=== PATIENT | male | born 1955 | race Caucasian/White ===

== ENCOUNTER 2016-11-06 17:35 | Inpatient (IN) | payer OTHER, MEDICAID ==
[2016-11-06] MEDS ORDERED: NS 500 ML IV ONE (17:41)
--- NOTE | 2016-11-06 17:42 | EDPHY ---
H & P HPI/ROS: HPI CHIEF COMPLAINT: Lightheadedness, nausea, diaphoresis HISTORY OF PRESENT ILLNESS: This patient very pleasant 61-year-old male, he presents emergency room by EMS if develops sudden onset of lightheadedness, nausea, diaphoresis and a feeling as if he was going to pass out. Denies having headache, chest pain, or focal weakness. He does endorse tingling all over his body when this happened. He did also endorse shortness of breath. Tells me the symptoms lasted 15-20 minutes. The since have resolved. He called 911 as he thought he was having a heart attack. Past Medical History: COPD, diastolic heart failure, AFib, diabetes, hypertension, hyperlipidemia, obstructive sleep apnea Past Surgical History: left-sided chest pacemaker Social History: Endorses marijuana, denies alcohol or other illicit drugs Family History: Noncontributory ROS REVIEW OF SYSTEMS: A comprehensive 10 point review of systems is otherwise negative aside from elements mentioned in the history of present illness. Exam Constitutional triage nursing summary reviewed, vital signs reviewed, awake/ alert. Eyes normal conjunctivae and sclera, EOMI, PERRLA. HENT normal inspection, atraumatic, moist mucus membranes, no epistaxis, neck supple/ no meningismus, no raccoon eyes. Respiratory clear to auscultation bilaterally, normal breath sounds, no respiratory distress, no wheezing. Cardiovascular rate normal, regular rhythm, no murmur, no edema, distal pulses normal. Gastrointestinal soft, non-tender, no rebound, no guarding, normal bowel sounds, no distension, no pulsatile mass. Genitourinary no CVA tenderness. Musculoskeletal no midline vertebral tenderness, full range of motion, no calf swelling, no tenderness of extremities, no meningismus, good pulses, neurovascularly intact. Skin pink, warm, & dry, no rash, skin atraumatic. Neurologic awake, alert and oriented x 3, AAOx3, moves all 4 extremities equally, motor intact, sensory intact, CN II-XII intact, normal cerebellar, normal vision, normal speech. Psychiatric normal mood/affect. Heme/Lymph/Immune no lymphadenopathy. Differential diagnosis includes but is not limited to: ACS, atypical chest pain , pneumothorax, pneumonia, pulmonary embolism, aortic dissection, congestive heart failure, tumor, musculoskeletal pain, esophageal pain, GERD, peptic ulcer disease, pancreatitis Medical Decision Making: This patient had an IV established obtain blood work, he will have an EKG and chest x-ray. Evaluated for presyncope versus syncope, and cardiac evaluation. Will need to interpret his [employer] pacemaker. Re-evaluation: EKG interpretation by me on record in [employer] system. Impression time of EKG 1740, this is AFib rate of 101, there is incomplete left bundle branch block present. I do not appreciate acute ischemic change. 1849: this patient's pacemaker was interrogated by [employer] it does show SVT episodes very frequently with heart rates in atrium running 450 stool for 60s and ventricular rate running 160s to 170s. This is very frequent. Also underlying AFib. Med otherwise the pacemaker is appropriate working appropriately. 1899: spoke with Dr. Hassan the hospitalist service who agrees to admit this patient. Reason for admission is SVT. Source: Patient, EMS - Medical/Surgical History Hx Asthma: No Hx Chronic Respiratory Disease: Yes Hx Diabetes: Yes Hx Cardiac Disease: Yes Hx Renal Disease: No Hx Cirrhosis: No Hx Alcoholism: No Hx HIV/AIDS: No Hx Splenectomy or Spleen Trauma: No Other PMH: CHF/HTN/type 2 diabetes, pacemaker, peripheral neuropathy, DOROTHY, afib on coumadin, compressed discs, prostate cancer, COPD, sleep apnea, tonsillectomy , radical prostatectomy - Social History Smoking Status: Never smoked Constitutional: Initial Vital Signs Temperature (C) 36.8 C 11/06/16 17:35 Heart Rate 103 H 11/06/16 17:35 Respiratory Rate 18 11/06/16 17:35 Blood Pressure 163/110 H 11/06/16 17:35 O2 Sat (%) 93 11/06/16 17:35 O2 Delivery Mode Nasal Cannula O2 (L/minute) 2 Allergies/Adverse Reactions: No Known Allergies Allergy (Verified 08/14/16 16:22) Home Medications: Medication Instructions Recorded Aspirin EC [Aspirin EC 81 mg (*)] 81 mg PO DAILY #30 tab 03/06/15 Potassium Cl [Klor-Con 20 meq (*)] 20 meq PO DAILY #30 tab 03/06/15 Furosemide [Lasix 40 MG (*)] 40 mg PO DAILY PRN 08/14/16 Metoprolol Succinate Xr [Toprol Xl 100 mg PO DAILY 08/14/16 100 mg (*)] metFORMIN HCL [Glucophage 500 mg 500 mg PO BIDMEAL PRN 08/14/16 (*)] Tiotropium Inhaler [Spiriva 18 mcg IH DAILY #1 mdi 08/15/16 Handihaler] Diltiazem HCl [Diltiazem ER] 240 mg PO DAILY 11/06/16 Warfarin Sodium [Coumadin 2.5MG 2.5 mg PO MOTUWEFR 11/06/16 (*)] Warfarin Sodium [Coumadin 5MG (*)] 5 mg PO SUTHSA 11/06/16 traMADol [Ultram 50 mg (*)] 50 - 100 mg PO BID PRN 11/06/16 Medical Decision Making - Data Points Laboratory Results: Laboratory Results 11/06/16 17:30 11/06/16 17:30 11/06/16 17:30 WBC 12.49 H 10^3/uL (3.80-9.50) RBC 6.13 10^6/uL (4.40-6.38) Hgb 18.6 H g/dL (13.7-17.5) Hct 53.3 H % (40.0-51.0) MCV 86.9 fL (81.5-99.8) MCH 30.3 pg (27.9-34.1) MCHC 34.9 g/dL (32.4-36.7) RDW 12.7 % (11.5-15.2) Plt Count 233 10^3/uL (150-400) MPV 10.8 fL (8.7-11.7) Neut % (Auto) 59.5 % (39.3-74.2) Lymph % (Auto) 32.2 % (15.0-45.0) Nolan % (Auto) 6.6 % (4.5-13.0) Eos % (Auto) 0.8 % (0.6-7.6) Baso % (Auto) 0.6 % (0.3-1.7) Nucleat RBC Rel Count 0.0 % (0.0-0.2) Absolute Neuts (auto) 7.42 H 10^3/uL (1.70-6.50) Absolute Lymphs (auto) 4.02 H 10^3/uL (1.00-3.00) Absolute Monos (auto) 0.83 H 10^3/uL (0.30-0.80) Absolute Eos (auto) 0.10 10^3/uL (0.03-0.40) Absolute Basos (auto) 0.08 10^3/uL (0.02-0.10) Absolute Nucleated RBC 0.00 10^3/uL (0-0.01) Immature Gran % 0.3 % (0.0-1.1) Immature Gran # 0.04 10^3/uL (0.00-0.10) PT 18.9 H SEC (12.0-15.0) INR 1.58 H (0.83-1.16) APTT 27.2 SEC (23.0-38.0) Sodium 143 mEq/L (134-144) Potassium 3.5 mEq/L (3.5-5.2) Chloride 102 mEq/L (97-110) Carbon Dioxide 26 mEq/l (22-31) Anion Gap 15 mEq/L (8-16) BUN 26 H mg/dL (7-23) Creatinine 1.3 mg/dL (0.7-1.3) Estimated GFR 56 Glucose 112 H mg/dL (70-100) Calcium 9.8 mg/dL (8.5-10.4) Magnesium 2.1 mg/dL (1.6-2.3) Total Bilirubin 1.2 mg/dL (0.1-1.4) Conjugated Bilirubin 0.6 H mg/dL (0.0-0.5) Unconjugated Bilirubin 0.6 mg/dL (0.0-1.1) AST 25 IU/L (17-59) ALT 42 IU/L (21-72) Alkaline Phosphatase 126 IU/L (38-126) Creatine Kinase 76 IU/L (0-224) CK-MB (CK-2) Fraction 1.33 ng/mL (0-3.19) Troponin I Pending NT-Pro-B Natriuret Pep Pending Total Protein 8.9 H g/dL (6.3-8.2) Albumin 4.9 g/dL (3.5-5.0) Lipase 96.0 IU/L (23-300) Medications Given: Discontinued Medications Sodium Chloride (Ns) 500 mls @ 0 mls/hr IV ONCE ONE PRN Reason: As Directed Stop: 11/06/16 17:42 Last Admin: 11/06/16 17:46 Dose: 500 mls Departure - Departure Disposition: [facility] Inpatient Acute Clinical Impression: Supraventricular tachycardia Condition: Fair
--- NOTE | 2016-11-06 17:45 | CPEKG ---
Heart Rate: 101 RR Interval: 594 QRSD Interval: 110 QT Interval: 400 QTC Interval: 519 QRS Montague: -56 T Wave Montague: 65 EKG Severity - ABNORMAL ECG - EKG Impression: ATRIAL FIBRILLATION, V-RATE 66-134 EKG Impression: INCOMPLETE LEFT BUNDLE BRANCH BLOCK EKG Impression: PROBABLE LEFT VENTRICULAR HYPERTROPHY Electronically Signed By: Lawrence Renee 06-Nov-2016 23:30:08
[2016-11-06 17:51] LABS: % IMMATURE GRANULYOCYTES 0.3 % (0.0-1.1); ABSOLUTE IMMATURE GRANULOCYTES 0.04 10^3/uL (0.00-0.10); ADD DIFF? NO; ADD MORPH? NO; ADD SCAN? NO; ATYPICAL LYMPHOCYTE FLAG 0 (0-99); FRAGMENT RBC FLAG 0 (0-99); HEMATOCRIT 53.3 % (40.0-51.0); HEMOGLOBIN 18.6 g/dL (13.7-17.5); LEFT SHIFT FLG 0 (0-99); LIPEMIA HEMOLYSIS FLAG 90 (0-99); MEAN CELL HEMOGLOBIN 30.3 pg (27.9-34.1); MEAN CELL HEMOGLOBIN CONCENTR. 34.9 g/dL (32.4-36.7); MEAN CELL VOLUME 86.9 fL (81.5-99.8); MEAN PLATELET VOLUME 10.8 fL (8.7-11.7); PLATELET CLUMPS FLAG 20 (0-99); PLATELET COUNT 233 10^3/uL (150-400); RED BLOOD CELL COUNT 6.13 10^6/uL (4.40-6.38); RED CELL DISTRIBUTION WIDTH 12.7 % (11.5-15.2)
[2016-11-06 17:59] LABS: INR 1.58 (0.83-1.16); PROTIME(PATIENT) 18.9 SEC (12.0-15.0)
[2016-11-06 18:00] LABS: APTT 27.2 SEC (23.0-38.0)
--- NOTE | 2016-11-06 18:11 | DX ---
Portable Chest, Single View 17:55 Hours Indication: Chest pain Comparison: 2 view chest dated August 14, 2016 Findings: The lungs are well aerated and clear. No pneumothorax, edema, or airspace consolidation. He art size is normal. No effusion. The left anterior chest wall dual-lead pacemaker with leads in the r ight atrium and right ventricle is unchanged in configuration. Impression: Clear lungs. No acute process.
[2016-11-06 18:13] LABS: ALANINE AMINOTRANSFERASE 42 IU/L (21-72); ALBUMIN 4.9 g/dL (3.5-5.0); ALKALINE PHOSPHATASE 126 IU/L (38-126); ANION GAP 15 mEq/L (8-16); ASPARTATE AMINOTRANSFERASE 25 IU/L (17-59); BILIRUBIN,TOTAL 1.2 mg/dL (0.1-1.4); BILIRUBIN-CONJUGATED 0.6 mg/dL (0.0-0.5); BILIRUBIN-UNCONJUGATED 0.6 mg/dL (0.0-1.1); CALCIUM 9.8 mg/dL (8.5-10.4); CARBON DIOXIDE 26 mEq/l (22-31); CHLORIDE 102 mEq/L (97-110); CREATININE 1.3 mg/dL (0.7-1.3); GLOMERULAR FILTRATION RATE 56; GLUCOSE 112 mg/dL (70-100); MAGNESIUM 2.1 mg/dL (1.6-2.3); POTASSIUM 3.5 mEq/L (3.5-5.2); SODIUM 143 mEq/L (134-144); TOTAL PROTEIN 8.9 g/dL (6.3-8.2)
[2016-11-06 18:43] LABS: CREATINE KINASE-MB FRACTION 1.33 ng/mL (0-3.19)
[2016-11-06 19:08] LABS: TROPONIN I < 0.012 ng/mL (0-0.034)
[2016-11-06] MEDS ORDERED: FUROSEMIDE 40 MG TAB PO PRN (19:23)
[2016-11-06] MEDS ORDERED: ONDANSETRON DISINTEGRATING 4 MG TAB PO PRN (19:25)
[2016-11-06] MEDS ORDERED: ONDANSETRON 4 MG/2 ML VIAL IVP PRN (19:25)
[2016-11-06] MEDS ORDERED: ACETAMINOPHEN 325 MG TAB PO PRN (19:25)
--- NOTE | 2016-11-06 20:19 | GHP ---
[f rep st] HISTORY AND PHYSICAL DATE OF ADMISSION: 11/06/2016 DATE OF EVALUATION: 11/06/2016 CHIEF COMPLAINT: Presyncope. HISTORY OF PRESENT ILLNESS: This is a 61-year-old man with multiple cardiac problems who presents with an acute feeling from earlier today of shortness of breath, dizziness, lightheadedness, tachycardia. He had no chest pain during this episode. He has a history of diastolic CHF, for which he has been hospitalized in [place] , atrial fibrillation, for which he is on chronic anticoagulation, pacemaker in place. In the emergency department, his pacemaker was interrogated, which showed multiple runs of tachycardia with rates up to a ventricular rate of around 150. He tells me that there had been talk of an ablation in the past, I assume, an AV puneet ablation. PAST MEDICAL/SURGICAL HISTORY: 1. AFib, status post pacemaker, on chronic anticoagulation. 2. Diastolic CHF with echocardiogram here showing normal EF, mild aortic insufficiency. 3. COPD. 4. Diabetes mellitus type 2. 5. Hypertension. 6. Hyperlipidemia. 7. DOROTHY. 8. History of prostate cancer, status post prostatectomy. MEDICATIONS: Please see medication reconciliation. ALLERGIES: No known drug allergies. FAMILY HISTORY: Stroke in his mother and father. SOCIAL HISTORY: He had previously been homeless, but he currently lives in an apartment. He has a history of alcoholism, though he has not drank alcohol recently. No drugs. REVIEW OF SYSTEMS: Ten-point review of systems is conducted and is negative except per HPI. PHYSICAL EXAMINATION: VITAL SIGNS: Blood pressure 142/107. Heart rate is 81, respiration rate 16, satting 96% on 2 L. Temperature is 36.8. GENERAL: The patient is a pleasant man who appears comfortable. No acute distress. HEENT: Exam shows him to be normocephalic, atraumatic. CARDIOVASCULAR: Exam shows him to be irregularly irregular. There are no murmurs, rubs, or gallops. There is no elevated JVD. No lower extremity edema. PULMONARY: Lungs clear to auscultation bilaterally. ABDOMEN: Soft, nontender, nondistended. SKIN: No rash. : No Ross. NEUROLOGIC: Exam shows him to be alert and oriented x3. He is moving all extremities. PSYCHIATRIC: Normal mood and affect. LABS: CBC shows a white count of 12, hemoglobin of 18.6. INR is 1.58. BNP is 1450. DATA: 1. I discussed with Dr. Renee. We will admit to PCU. 2. Chest x-ray, which I personally viewed and interpreted, shows pacemaker with AV leads in place. There is nothing acute. 3. EKG, which I personally viewed and interpreted, shows atrial fibrillation. There are no ST-segment changes. This is similar to previous EKGs. IMPRESSION AND PLAN: This is a 61-year-old male with multiple cardiac issues who presents with presyncope. 1. Presyncope: Suspect that this is due to arrhythmias. Pacer interrogation in the ED showed multiple runs of supraventricular tachycardia. He apparently had discussion of an AV node ablation in the past. He will be monitored on telemetry. Troponins will be trended. Cardiology will be consulted. 2. Atrial fibrillation with subtherapeutic INR: We will continue his warfarin. Recheck INR in the morning. We will continue his rate control medications. 3. History of diastolic dysfunction: He appears well compensated. His BNP is elevated, though it is actually lower than his previous. We will continue his Lasix as needed. 4. Erythrocythemia: This is somewhat new for him. He also has leukocytosis with even differential. We will recheck a CBC in the morning. May need hematology followup. 5. Mildly elevated creatinine: We will follow this closely and recheck in the morning. 6. Code status: Full code. 7. Chronic obstructive pulmonary disease: We will continue his inhalers. Erythrocythemia may be chronic hypoxia. 8. Diabetes mellitus type 2: We will hold his metformin. /[id number]/MODL MTDD
[2016-11-06] MEDS: WARFARIN SODIUM 2.5 MG TAB PO SCH (22:03)
[2016-11-07 06:35] LABS: % IMMATURE GRANULYOCYTES 0.3 % (0.0-1.1); ABSOLUTE IMMATURE GRANULOCYTES 0.02 10^3/uL (0.00-0.10); ADD DIFF? NO; ADD MORPH? NO; ADD SCAN? NO; ATYPICAL LYMPHOCYTE FLAG 20 (0-99); FRAGMENT RBC FLAG 0 (0-99); HEMATOCRIT 46.2 % (40.0-51.0); HEMOGLOBIN 16.5 g/dL (13.7-17.5); LEFT SHIFT FLG 0 (0-99); LIPEMIA HEMOLYSIS FLAG 90 (0-99); MEAN CELL HEMOGLOBIN 31.2 pg (27.9-34.1); MEAN CELL HEMOGLOBIN CONCENTR. 35.7 g/dL (32.4-36.7); MEAN CELL VOLUME 87.3 fL (81.5-99.8); MEAN PLATELET VOLUME 10.6 fL (8.7-11.7); PLATELET CLUMPS FLAG 10 (0-99); PLATELET COUNT 155 10^3/uL (150-400); RED BLOOD CELL COUNT 5.29 10^6/uL (4.40-6.38); RED CELL DISTRIBUTION WIDTH 12.4 % (11.5-15.2)
[2016-11-07 06:38] LABS: INR 1.84 (0.83-1.16); PROTIME(PATIENT) 21.3 SEC (12.0-15.0)
[2016-11-07 06:55] LABS: ANION GAP 8 mEq/L (8-16); CALCIUM 8.4 mg/dL (8.5-10.4); CARBON DIOXIDE 25 mEq/l (22-31); CHLORIDE 107 mEq/L (97-110); CREATININE 0.9 mg/dL (0.7-1.3); GLOMERULAR FILTRATION RATE > 60; GLUCOSE 98 mg/dL (70-100); POTASSIUM 3.3 mEq/L (3.5-5.2); SODIUM 140 mEq/L (134-144)
[2016-11-07 07:03] LABS: TROPONIN I < 0.012 ng/mL (0-0.034)
[2016-11-07] MEDS: traMADol 50 MG TAB PO PRN (07:23)
[2016-11-07] MEDS: METOPROLOL SUCCINATE XR 100 MG TAB PO SCH (07:23)
[2016-11-07] MEDS: DILTIAZEM XR 240 MG CAP PO SCH (07:24)
[2016-11-07] MEDS: ASPIRIN EC 81 MG TAB PO SCH (08:42)
[2016-11-07] MEDS: POTASSIUM CL 20 MEQ TAB PO SCH (08:42)
[2016-11-07] MEDS: TIOTROPIUM INHALER 18 MCG/DOSE 5 DOSE/MDI IH SCH (09:29)
--- NOTE | 2016-11-07 15:16 | HOSPPROG ---
Hospitalist Progress Note Assessment/Plan: # acute presyncope- patient with lightheadedness and palpitations on presentation- based on pacemaker interrogation thought potentially related to SVT EKG (personally reviewed and interpreted) Atrial fibrillation - cardiology consulting for recs regarding possible EP consultation - status post IV fluids in the emergency department - continue tele monitoring # atrial fibrillation- currently rate controlled on home meds in the 70s - continue anticoagulation- INR 1.8 - continue home metoprolol # hypertension- adequate control on home meds # diabetes- blood glucose 90-110- monitor on a.m. labs # chronic diastolic heart failure- clinically compensated- oxygen saturations 95% on room air # prophylaxis- full-dose anticoagulation # diet- cardiac # disposition greater than 2 midnights as patient requires cardiac monitoring medication titration and likely EP consultation I discussed the case with Cardiology they will evaluate patient's pacemaker interrogation and make recommendations Subjective: he has no symptoms overnight Objective: Vital Signs Temp Pulse Resp BP Pulse Ox 36.6 C 73 18 150/111 H 93 11/07/16 11:22 11/07/16 11:22 11/07/16 11:22 11/07/16 11:22 11/07/16 11:22 Laboratory Results 11/07/16 05:10 11/07/16 05:10 11/06/16 11/07/16 11/08/16 05:59 05:59 05:59 Intake Total 1000 Output Total 375 Balance 625 PT 21.3 SEC (12.0-15.0) H 11/07/16 05:10 INR 1.84 (0.83-1.16) H 11/07/16 05:10 - Physical Exam Constitutional: appears nourished Eyes: anicteric sclera Ears, Nose, Mouth, Throat: moist mucous membranes Cardiovascular: regular rate and rhythym Respiratory: no respiratory distress, no rales or rhonchi Gastrointestinal: normoactive bowel sounds, soft, non-tender abdomen Genitourinary: no bladder fullness Skin: warm, normal color Musculoskeletal: No asymmetric calves Neurologic: AAOx3 Psychiatric: interacting appropriately, not anxious Lymph, Heme, Immunologic: no cervical LAD ICD10 Worksheet Patient Problems: Problems Problem Status Diagnosed SVT (supraventricular tachycardia) Acute A-fib Acute Shortness of breath Acute
[2016-11-07] MEDS ORDERED: PROTOCOL POTASSIUM 1 DOSE MISC PRN (15:25)
--- NOTE | 2016-11-07 15:29 | PDCARCONS ---
Cardiology Consult Reason for Consult: Pre syncopal Chief Complaint: Pre syncopal Requesting Physician: Hospitalist History of Present Illness: Patient is a 61 y/o male with history of DM (on therapy) with diabetic neuropathy, HTN, HLP, SSS s/p PPM with underlying atrial fibrillation (on coumadin with [id number] score of 4), COPD, and DOROTHY (CPAP use), who presents to [facility] via EMS with complaints of dyspnea, diaphoresis, and generalized malaise. Symptoms progressed with nausea and emesis. Overall, patient felt like he was going to "pass out". EMS arrived and reportedly caught some pSVT with rates of 150 bpm. Underlying atrial fibrillation for "years" with history of unsuccessful cardioversions. Patient with stress testing (MPI) in the Fall of 2015 with possible "small apical infarction noted", but normal left ventricular systolic ejection fraction. CT scan of chest (given history of COPD ) with evidence of CAD to the LAD and Diag vessels. Uncertain on the patient HgbA1C levels, but he does have a rather significant case of neuropathy. No evidence of nephropathy given normal creatinine today. At present, the patient reports that he is feeling about "baseline" without active complaints of chest pains or pressure. No PND or orthopnea has been noted. Compliance with medical therapy has been good. Blood pressure while exam going on today was moderately elevated to 150/100 mm Hg. Patient does feel that there has been progressive dyspnea and inability to perform day to day activities without more pronounced shortness of breath. Remainder of the ten point review of systems was unremarkable. History Information - Allergies/Home Medication List Allergies/Adverse Reactions: No Known Allergies Allergy (Verified 08/14/16 16:22) Home Medications: Furosemide [Lasix 40 MG (*)] 40 mg PO DAILY PRN 08/14/16 [Last Taken Unknown] Metoprolol Succinate Xr [Toprol Xl 100 mg (*)] 100 mg PO DAILY 08/14/16 [Last Taken 11/06/16] metFORMIN HCL [Glucophage 500 mg (*)] 500 mg PO BIDMEAL PRN 08/14/16 [Last Taken Unknown] Diltiazem HCl [Diltiazem ER] 240 mg PO DAILY 11/06/16 [Last Taken 11/06/16] Warfarin Sodium [Coumadin 2.5MG (*)] 2.5 mg PO MOTUWEFR 11/06/16 [Last Taken ] Warfarin Sodium [Coumadin 5MG (*)] 5 mg PO SUTHSA 11/06/16 [Last Taken 11/05/16] traMADol [Ultram 50 mg (*)] 50 - 100 mg PO BID PRN 11/06/16 [Last Taken 100mg] I have personally reviewed and updated: family history, medical history, social history, surgical history - Past Medical History atrial fibrillation (on anticoagulation with PPM for SSS ), coronary artery disease, cancer (prostate s/p prostatectomy), CHF (diastolic), COPD, diabetes type 2, hypertension, hyperlipidemia - Surgical History Reports: pacemaker/AICD - Family History Positive for: stroke - Social History Smoking Status: Never smoked Alcohol Use: None Drug Use: None Cardiac History - Cardiac History Past Cardiac History: CAD, PACEMAKER Cardiac Risk Factors: hypertension (>140/90), lipidemia, diabetes mellitus, male Timing/Duration: Hours Severity: moderate Severity Scale: 5 Location: substernal Activities at Onset: emotional stress Modifying Factors: improves with: breathing, lying down, rest Associated Symptoms: diaphoresis, nausea/vomiting, shortness of breath, syncope , weakness ANN Risk Evaluation age greater or equal to 65: no greater or equal to 3 CAD risk factors: yes known CAD(stenosis greater or eqaul to 50%): yes ASA use in past 7 days: yes severe angina(greater or equal to 2 episodes in 24hrs): no EKG ST changes greater or equal to 0.5mm: no positive cardiac marker: no Total Score: 3 ANN Score: 13.2% risk Age in Years: < 65 Sex: Male Congestive Heart Failure History: Yes Hypertension History: Yes Stroke/TIA/Thromboembolism History: No Vascular Disease History: No Diabetes Mellitus: Yes [id number] Score: 3Q Physical Exam Temp Pulse Resp BP Pulse Ox 36.6 C 73 18 150/111 H 93 11/07/16 11:22 11/07/16 11:22 11/07/16 11:22 11/07/16 11:22 11/07/16 11:22 O2 (L/minute) 2 Constitutional: no apparent distress, appears nourished, not in pain Eyes: PERRL Ears, Nose, Mouth, Throat: moist mucous membranes, hearing normal Cardiovascular: irregularly irregular, No systolic murmur, No JVD, No edema Peripheral Pulses: 2+: dorsalis-pedis (R), dorsalis-pedis (L) Respiratory: no respiratory distress, no rales or rhonchi, clear to auscultation , No dullness to percussion Gastrointestinal: normoactive bowel sounds Skin: warm, No rash Musculoskeletal: full muscle strength, no muscle tenderness Neurologic: AAOx3, sensation intact bilaterally, CN II-XII Intact Psychiatric: interacting appropriately, not anxious, not encephalopathic Lab and Imaging 11/07/16 05:10 11/07/16 05:10 WBC 7.83 10^3/uL (3.80-9.50) 11/07/16 05:10 RBC 5.29 10^6/uL (4.40-6.38) 11/07/16 05:10 Hgb 16.5 g/dL (13.7-17.5) 11/07/16 05:10 Hct 46.2 % (40.0-51.0) 11/07/16 05:10 MCV 87.3 fL (81.5-99.8) 11/07/16 05:10 MCH 31.2 pg (27.9-34.1) 11/07/16 05:10 MCHC 35.7 g/dL (32.4-36.7) 11/07/16 05:10 RDW 12.4 % (11.5-15.2) 11/07/16 05:10 Plt Count 155 10^3/uL (150-400) D 11/07/16 05:10 MPV 10.6 fL (8.7-11.7) 11/07/16 05:10 Neut % (Auto) 58.4 % (39.3-74.2) 11/07/16 05:10 Lymph % (Auto) 31.4 % (15.0-45.0) 11/07/16 05:10 [place] % (Auto) 8.0 % (4.5-13.0) 11/07/16 05:10 Eos % (Auto) 1.4 % (0.6-7.6) 11/07/16 05:10 Baso % (Auto) 0.5 % (0.3-1.7) 11/07/16 05:10 Nucleat RBC Rel Count 0.0 % (0.0-0.2) 11/07/16 05:10 Absolute Neuts (auto) 4.57 10^3/uL (1.70-6.50) 11/07/16 05:10 Absolute Lymphs (auto) 2.46 10^3/uL (1.00-3.00) 11/07/16 05:10 Absolute Monos (auto) 0.63 10^3/uL (0.30-0.80) 11/07/16 05:10 Absolute Eos (auto) 0.11 10^3/uL (0.03-0.40) 11/07/16 05:10 Absolute Basos (auto) 0.04 10^3/uL (0.02-0.10) 11/07/16 05:10 Absolute Nucleated RBC 0.00 10^3/uL (0-0.01) 11/07/16 05:10 Immature Gran % 0.3 % (0.0-1.1) 11/07/16 05:10 Immature Gran # 0.02 10^3/uL (0.00-0.10) 11/07/16 05:10 PT 21.3 SEC (12.0-15.0) H 11/07/16 05:10 INR 1.84 (0.83-1.16) H 11/07/16 05:10 APTT 27.2 SEC (23.0-38.0) 11/06/16 17:30 Sodium 140 mEq/L (134-144) 11/07/16 05:10 Potassium 3.3 mEq/L (3.5-5.2) L 11/07/16 05:10 Chloride 107 mEq/L (97-110) 11/07/16 05:10 Carbon Dioxide 25 mEq/l (22-31) 11/07/16 05:10 Anion Gap 8 mEq/L (8-16) 11/07/16 05:10 BUN 17 mg/dL (7-23) 11/07/16 05:10 Creatinine 0.9 mg/dL (0.7-1.3) 11/07/16 05:10 Estimated GFR > 60 11/07/16 05:10 Glucose 98 mg/dL (70-100) 11/07/16 05:10 Calcium 8.4 mg/dL (8.5-10.4) L 11/07/16 05:10 Magnesium 2.1 mg/dL (1.6-2.3) 11/06/16 17:30 Total Bilirubin 1.2 mg/dL (0.1-1.4) 11/06/16 17:30 Conjugated Bilirubin 0.6 mg/dL (0.0-0.5) H 11/06/16 17:30 Unconjugated Bilirubin 0.6 mg/dL (0.0-1.1) 11/06/16 17:30 AST 25 IU/L (17-59) 11/06/16 17:30 ALT 42 IU/L (21-72) 11/06/16 17:30 Alkaline Phosphatase 126 IU/L (38-126) 11/06/16 17:30 Creatine Kinase 76 IU/L (0-224) 11/06/16 17:30 CK-MB (CK-2) Fraction 1.33 ng/mL (0-3.19) 11/06/16 17:30 Troponin I < 0.012 ng/mL (0-0.034) 11/07/16 05:10 NT-Pro-B Natriuret Pep 1450 pg/mL (0-125) H 11/06/16 17:30 Total Protein 8.9 g/dL (6.3-8.2) H 11/06/16 17:30 Albumin 4.9 g/dL (3.5-5.0) 11/06/16 17:30 Lipase 96.0 IU/L (23-300) 11/06/16 17:30 Visualized and Interpreted Chest x-ray results: Yes Chest X-ray Interpretation: no infiltrate, normal heart size Visualized and Interpreted EKG results: Yes EKG Interpretation: Positive for: other (atrial fibrillation) Telemetry: atrial fibrillation A/P Assessment: Patient is a 61 y/o male with history of CAD (by CT scan), HTN, HLP, DM, DM neuropathy, SSS s/p PPM, atrial fibrillation, DOROTHY, prostate cancer s/p prostatectomy, and COPD, who presented to [facility] with complaints of "near syncope" . EMS with a run of pSVT noted. Ongoing underlying atrial fibrillation (with some elevation in rates noted). No complaints of chest pains or pressure, but there was a bout of nausea, emesis, diaphoresis, and generalized malaise noted ( which led to the admission). Compliance with medical therapy has been good. Uncertain on the last HgbA1C levels. No dynamic ECG changes noted. Stress testing the Fall of 2015 without "ischaemic changes", but with findings to suggest an "old AK". Plan: Recommendations for patient to have Left heart catheterization. INR was 1.8 ( would not wish this to be any higher). Risks and benefits of this invasive procedure were discussed with the patient today. Would maintain aggressive therapies as at present. Further recommendations to follow after diagnostic testing has been completed. Patient was in agreement with these plans.
[2016-11-07] MEDS ORDERED: LIDOCAINE 1% 30 ML SDV ONE (15:53)
[2016-11-07] MEDS ORDERED: IOPAMIDOL (ISOVUE-370) 150 ML BTL IV ONE (15:54)
[2016-11-07] MEDS ORDERED: fentaNYL 100 MCG/2 ML INJ ONE (15:54)
[2016-11-07] MEDS ORDERED: MIDAZOLAM 2 MG/2 ML VIAL ONE (15:54)
[2016-11-07] MEDS ORDERED: ASPIRIN EC 325 MG TAB PO ONE (16:02)
[2016-11-07] MEDS ORDERED: DIAZEPAM 5 MG TAB PO ONE (16:02)
[2016-11-07] MEDS ORDERED: ACETAMINOPHEN 325 MG TAB PO PRN (16:02)
[2016-11-07] MEDS ORDERED: TEMAZEPAM 15 MG CAP PO PRN (16:02)
[2016-11-07] MEDS ORDERED: diphenhydrAMINE 25 MG CAP PO ONE ×2 (16:02→16:29)
[2016-11-07] MEDS ORDERED: NITROGLYCERIN 0.4 MG BTL SL PRN ×2 (16:02→17:37)
[2016-11-07] MEDS ORDERED: DIAZEPAM 5 MG TAB ONE (16:30)
[2016-11-07] MEDS ORDERED: METOPROLOL TARTRATE 5 MG/5 ML INJ ONE (17:07)
[2016-11-07] MEDS ORDERED: HYDROCODONE/APAP 5/325 TAB PO PRN (17:37)
[2016-11-07] MEDS ORDERED: ONDANSETRON 4 MG/2 ML VIAL IVP PRN (17:37)
[2016-11-07] MEDS ORDERED: OXYCODONE/APAP 5/325 TAB PO PRN (17:37)
[2016-11-07] MEDS ORDERED: ATROPINE SULFATE 1 MG/10 ML SYR IVP PRN (17:37)
--- NOTE | 2016-11-07 17:47 | PDDXCAT ---
Diagnostic Cath Note - . Date: 11/07/16 [employer] Travel Expert: Cornel Indication: CCC Class III and IV angina on medical treatment - Procedure Access: right groin Procedure: left heart catheterization, coronary angiography, left ventriculogram - Materials Left Heart Cath size: 6F Left Heart Cath materials: standard multipack (JL4, JR4, pigtail) - Findings-Left Heart Catheterization LM: short, bifurcation into the LAD and LCX LAD: very small with diffuse disease. One principle diagonal with moderate ostial/proximal disease as well as branch stenosis to a small region of the mid vessel. No flow limitations noted LCX: Small vessel - likely co-dominant - with diffuse, moderate disease noted. RCA: small vessel - co dominant - with diffuse disease to no more than 30%. EDP: 13 mm Hg LVEF: 50-55% Wall motion: questionable hypokinesis to the mid anterior wall Complications: none Estimated blood loss: <50ml Closure method: Angioseal Assessment: 61 y/o male with history of CAD (by CT), HTN, HLP, DM, COPD, SSS s/ p PPM, Atrial fibrillation, prostate cancer, and DOROTHY, who presented with an acute onset of diaphoresis, generalized malaise, and nausea. Stress testing in the Fall with possible "infarction" to the apex. Plan: No critical CAD noted, small vessels noted throughout. Grossly normal LVEF. Would recommend aggressive medical management. None of the lesions were (a) critical or (b) to large, intervene tolerant vessels (the vessels were very small). Aggressive DM, HTN, and HLP therapy should continue. Intervention: none Patient Problems: Problems Problem Status Diagnosed SVT (supraventricular tachycardia) Acute A-fib Acute Shortness of breath Acute
[2016-11-07] MEDS ORDERED: LABETALOL HCL 5 MG/ML 20 ML MDV ONE (18:17)
[2016-11-07] MEDS ORDERED: METOPROLOL TARTRATE 50 MG TAB ONE (18:18)
[2016-11-07] MEDS ORDERED: METOPROLOL TARTRATE 25 MG TAB PO ONE (18:30)
[2016-11-07] MEDS ORDERED: METOPROLOL TARTRATE 5 MG/5 ML INJ IVP ONE (18:30)
[2016-11-07 18:45] LABS: POTASSIUM 3.3 mEq/L (3.5-5.2)
[2016-11-07] MEDS ORDERED: POTASSIUM CL 10 MEQ TAB PO ONE (19:45)
[2016-11-07] MEDS: WARFARIN SODIUM 2.5 MG TAB PO SCH (20:20)
[2016-11-08] MEDS: traMADol 50 MG TAB PO PRN ×2 (02:46→10:30)
[2016-11-08 05:35] LABS: POTASSIUM 3.9 mEq/L (3.5-5.2)
[2016-11-08] MEDS: TIOTROPIUM INHALER 18 MCG/DOSE 5 DOSE/MDI IH SCH (08:55)
[2016-11-08] MEDS: ASPIRIN EC 81 MG TAB PO SCH (10:30)
[2016-11-08] MEDS: DILTIAZEM XR 240 MG CAP PO SCH (10:30)
[2016-11-08] MEDS: POTASSIUM CL 20 MEQ TAB PO SCH (10:30)
[2016-11-08] MEDS: METOPROLOL SUCCINATE XR 100 MG TAB PO SCH (10:30)
[2016-11-08] MEDS ORDERED: POTASSIUM CL 10 MEQ TAB PO ONE (10:42)
[2016-11-08 11:12] VITALS: BP 168/111; PULSE 85; RESP 14; TEMP 97.4; O2SAT 98
--- NOTE | 2016-11-08 12:38 | PDDCSUM ---
Discharge Summary Discharge Summary: Dates of service 11/06-11/08/16 Consultations: cardiology Procedures performed: left heart cath, coronary angiography, left ventriculogram Brief hx of present illness: 61 yo M with hx of a fib, sss s/p PPM, CAD presenting with pre syncope in setting of pSVT Hospital course by problem: # acute presyncope- in the setting of run of svt noted on pacer interrogation. Cardiac catheterization peformed without any significant CAD. # atrial fibrillation- currently rate controlled on home meds in the 70s, continue metop/dilt/warfarin # CAD: with diffuse non obstructive CAD on cath, continue aggressive RF modification including BP and glucose mgmt as below # hypertension- remains above goal on home meds, added low dose lisinopril for now, will f/u with PCP and cardiology to be sure that control is improved # diabetes- blood glucose 90-110- continue metformin after dc # chronic diastolic heart failure- clinically compensated- oxygen saturations 95% on room air # diet- cardiac, diabetic Meds: see EHR, addition of 5mg lisinopril Physical exam: patient seen and evaluated day of dc, BP running in 140s systolic , euvolemic, nad Dispo: dc home, f/u with PCP Franklyn and Dr. Unger with Cardiology > 35 min spent in dc of patient, more than half in coordination of care
[2016-11-09] MEDS ORDERED: WARFARIN SODIUM 5 MG TAB PO SCH (16:00)
== END 2016-11-08 12:15 | disposition home or self-care (01) | DRG 287 ==
LOC: EDUNIT# → INTOOBSV 18:59 → F2W 21:01 → OBSVTOIN 11-07 15:12
PROVIDERS: ADMIT Student in an Organized Health Care Education/Training Program; ATTEND Internal Medicine
PROC: B2151ZZ Fluoroscopy of Left Heart using Low Osmolar Contrast (ICD-10-PCS; principal; 2016-11-07)
PROC: B2111ZZ Fluoroscopy of Multiple Coronary Arteries using Low Osmolar Contrast (ICD-10-PCS; principal; 2016-11-07)
PROC: 4A023N7 Measurement of Cardiac Sampling and Pressure, Left Heart, Percutaneous Approach (ICD-10-PCS; principal; 2016-11-07)
DX: I47.1 Supraventricular tachycardia (principal); I25.10 Atherosclerotic heart disease of native coronary artery without angina pectoris; I50.32 Chronic diastolic (congestive) heart failure; I11.0 Hypertensive heart disease with heart failure; I48.91 Unspecified atrial fibrillation; J44.9 Chronic obstructive pulmonary disease, unspecified; E11.9 Type 2 diabetes mellitus without complications; E78.5 Hyperlipidemia, unspecified; G47.33 Obstructive sleep apnea (adult) (pediatric); Z95.0 Presence of cardiac pacemaker; Z79.01 Long term (current) use of anticoagulants; Z85.46 Personal history of malignant neoplasm of prostate
CPT/HCPCS: C1760; G0378; J1644; J2250; J3010; J3490; Q9967

== ENCOUNTER → 2017-05-23 | Outpatient (CLI) | payer OTHER, MEDICAID | LOC: FIMAGING 10:11 | PROVIDERS: ATTEND Family Medicine | DX: I70.203 Unspecified atherosclerosis of native arteries of extremities, bilateral legs (principal); E11.9 Type 2 diabetes mellitus without complications; I10 Essential (primary) hypertension; E78.5 Hyperlipidemia, unspecified ==

== ENCOUNTER 2017-08-02 05:28 | Observation (INO) | payer OTHER, MEDICAID ==
--- NOTE | 2017-08-02 05:39 | CPEKG ---
Heart Rate: 124 RR Interval: 484 QRSD Interval: 110 QT Interval: 360 QTC Interval: 517 QRS Ira: -64 T Wave Ira: 96 EKG Severity - ABNORMAL ECG - EKG Impression: ATRIAL FIBRILLATION, V-RATE 93-165 EKG Impression: LAD, CONSIDER LEFT ANTERIOR FASCICULAR BLOCK EKG Impression: LEFT VENTRICULAR HYPERTROPHY Electronically Signed By: Atul Gonzalez 02-Aug-2017 06:15:54
[2017-08-02] MEDS ORDERED: DILTIAZEM 25 MG/5 ML VIAL IVP ONE (05:42)
--- NOTE | 2017-08-02 05:45 | EDPHY ---
H & P HPI/ROS: Chief Complaint: Palpitations, chest discomfort HPI: 62-year-old male with a history of atrial fibrillation, diabetes, heart failure and COPD is presenting with palpitations and chest discomfort. Patient states that he has been having this sensation for the last couple weeks with been significantly worse tonight. He has a history of atrial fibrillation states this feels to similar to an episode when he had difficulties with his pacemaker several months ago. He has last saw his submarine cable equipment technician in May. He does not recall his submarine cable equipment technician name. No recent illness. No fevers or chills. No cough. No nausea or vomiting. He has been compliant with his medications. Denies any alcohol. Does use occasional marijuana. He is currently homeless and living in the [facility]. ROS: 10 point Review of Systems is negative except as noted in the HPI. PMH: Atrial fibrillation, coronary artery disease, hypertension, diabetes, chronic diastolic heart failure Social History: No smoking, no alcohol, occasional marijuana Family History: non-contributory Physical Exam: Gen: Awake, Alert, No Distress HEENT: Nose: no rhinorrhea Eyes: PERRLA, EOMI Mouth: Moist mucosa Neck: Supple, no JVD Chest: nontender, lungs clear to auscultation Heart: Tachycardic, irregularly irregular Abd: Soft, non-tender, no guarding Back: no CVA tenderness, no midline tenderness Ext: no edema, non-tender Skin: no rash Neuro: CN II-XII intact, Sensation grossly intact, Strength 5/5 in bilateral upper and lower extremities - Medical/Surgical History Hx Asthma: No Hx Chronic Respiratory Disease: Yes Hx Diabetes: Yes Hx Cardiac Disease: Yes Hx Renal Disease: No Hx Cirrhosis: No Hx Alcoholism: No Hx HIV/AIDS: No Hx Splenectomy or Spleen Trauma: No Other PMH: CHF/HTN/type 2 diabetes, pacemaker, peripheral neuropathy, DOROTHY, afib on coumadin, compressed discs, prostate cancer, COPD, sleep apnea, tonsillectomy , radical prostatectomy - Social History Smoking Status: Never smoked Constitutional: Initial Vital Signs Temperature (C) 36.6 C 08/02/17 05:36 Heart Rate 136 H 08/02/17 05:36 Respiratory Rate 20 08/02/17 05:36 Blood Pressure 151/111 H 08/02/17 05:36 O2 Sat (%) 97 08/02/17 05:36 O2 Delivery Mode Room Air Allergies/Adverse Reactions: No Known Allergies Allergy (Verified 08/02/17 05:39) Home Medications: Medication Instructions Recorded Metoprolol Succinate Xr [Toprol Xl 100 mg PO DAILY 08/14/16 100 mg (*)] metFORMIN HCL [Glucophage 500 mg 500 mg PO BIDMEAL PRN 08/14/16 (*)] Tiotropium Inhaler [Spiriva 18 mcg IH DAILY #1 mdi 08/15/16 Handihaler] Diltiazem HCl [Diltiazem 24Hr ER] 240 mg PO DAILY 11/06/16 Warfarin Sodium [Coumadin 2.5MG 2.5 mg PO MOTUWEFR 11/06/16 (*)] Warfarin Sodium [Coumadin 5MG (*)] 5 mg PO SUTHSA 11/06/16 traMADol [Ultram 50 mg (*)] 50 - 100 mg PO BID PRN 11/06/16 Lisinopril 5 mg PO DAILY #30 tablet 11/08/16 Medical Decision Making - Diagnostics EKG Interpretation: ECG time 5:38 a.m., atrial fibrillation with a rate of 124, left axis deviation , LVH, unchanged from an ECG from 11/06/2016. ED Course/Re-evaluation: 62-year-old male in AF with RVR. Will give diltiazem and reassess pillow. Chest x-ray rule out for infection. Patient is not have any infective symptoms. 0605 patient's heart rate down is 200 after 15 mg of diltiazem IV. Patient is feeling improved. I have discussed with Dr. Agarwal, hospitalist. He will admit for further evaluation and management of the patient's medications with likely Cardiology consultation. - Data Points Laboratory Results: Laboratory Results 08/02/17 05:30 08/02/17 08/02/17 05:30 05:30 APTT Pending Sodium 140 mEq/L mEq/L (134-144) Potassium 3.1 mEq/L L mEq/L (3.5-5.2) Chloride 101 mEq/L mEq/L (97-110) Carbon Dioxide 24 mEq/l mEq/l (22-31) Anion Gap 15 mEq/L mEq/L (8-16) BUN 14 mg/dL mg/dL (7-23) Creatinine 1.0 mg/dL mg/dL (0.7-1.3) Estimated GFR > 60 Glucose 165 mg/dL H mg/dL (70-100) Calcium 9.5 mg/dL mg/dL (8.5-10.4) Total Bilirubin 1.3 mg/dL mg/dL (0.1-1.4) AST 18 IU/L IU/L (17-59) ALT 30 IU/L IU/L (21-72) Alkaline Phosphatase 100 IU/L IU/L (38-126) Total Protein 7.5 g/dL g/dL (6.3-8.2) Albumin 4.3 g/dL g/dL (3.5-5.0) Medications Given: Discontinued Medications Diltiazem HCl (Cardizem 25 Mg/5 Ml Vial) 15 mg IVP EDNOW ONE Stop: 08/02/17 05:43 Last Admin: 08/02/17 05:54 Dose: 15 mg Departure - Departure Disposition: [facility] [place] [facility] Clinical Impression: A-fib Condition: Fair Referrals: Patient,NotPresent [Unknown] - As per Instructions
[2017-08-02 05:59] LABS: ALANINE AMINOTRANSFERASE 30 IU/L (21-72); ALBUMIN 4.3 g/dL (3.5-5.0); ALKALINE PHOSPHATASE 100 IU/L (38-126); ANION GAP 15 mEq/L (8-16); ASPARTATE AMINOTRANSFERASE 18 IU/L (17-59); BILIRUBIN,TOTAL 1.3 mg/dL (0.1-1.4); CALCIUM 9.5 mg/dL (8.5-10.4); CARBON DIOXIDE 24 mEq/l (22-31); CHLORIDE 101 mEq/L (97-110); GLOMERULAR FILTRATION RATE > 60; GLUCOSE 165 mg/dL (70-100); POTASSIUM 3.1 mEq/L (3.5-5.2); SODIUM 140 mEq/L (134-144); TOTAL PROTEIN 7.5 g/dL (6.3-8.2)
[2017-08-02 06:07] LABS: APTT 32.5 SEC (23.0-38.0)
[2017-08-02] MEDS ORDERED: ONDANSETRON DISINTEGRATING 4 MG TAB PO PRN (06:07)
[2017-08-02] MEDS ORDERED: ONDANSETRON 4 MG/2 ML VIAL IVP PRN (06:07)
[2017-08-02] MEDS ORDERED: PROTOCOL MAGNESIUM 1 DOSE IV PRN (06:13)
[2017-08-02] MEDS ORDERED: PROTOCOL POTASSIUM 1 DOSE MISC PRN (06:13)
[2017-08-02 06:18] LABS: INR 2.77 (0.83-1.16); PROTIME(PATIENT) 29.6 SEC (12.0-15.0)
--- NOTE | 2017-08-02 06:25 | PDGENHP ---
History and Physical - Chief Complaint Palpitations - History of Present Illness 62 yo M w/ SSS s/p PPM, AF on warfarin, HFpEF, HTN, DM, and COPD presents with palpitations and chest discomfort. He noticed dizziness, fatigue, and malaise this morning. He states these are the symptoms he feels when he is going into "heart failure" and having "pacemaker problems". Upon arrival to the ED he was noted to have a HR of 130. He was given diltiazem 15 mg IV x1 in the ED, his HR improved, and his symptoms resolved. He denies recent cold or flu-like symptoms. He denies leg swelling of acute shortness of breath. He denies ETOH use or tobacco use. He says he got COPD from second hand smoke. History Information - Allergies/Home Medication List Allergies/Adverse Reactions: No Known Allergies Allergy (Verified 08/02/17 05:39) Home Medications: Metoprolol Succinate Xr [Toprol Xl 100 mg (*)] 100 mg PO DAILY 08/14/16 [Last Taken 11/06/16] metFORMIN HCL [Glucophage 500 mg (*)] 500 mg PO BIDMEAL PRN 08/14/16 [Last Taken Unknown] Diltiazem HCl [Diltiazem 24Hr ER] 240 mg PO DAILY 11/06/16 [Last Taken 11/06/16] Warfarin Sodium [Coumadin 2.5MG (*)] 2.5 mg PO MOTUWEFR 11/06/16 [Last Taken ] Warfarin Sodium [Coumadin 5MG (*)] 5 mg PO SUTHSA 11/06/16 [Last Taken 11/05/16] traMADol [Ultram 50 mg (*)] 50 - 100 mg PO BID PRN 11/06/16 [Last Taken 100mg] I have personally reviewed and updated: family history, medical history - Past Medical History atrial fibrillation (on anticoagulation with PPM for SSS ), coronary artery disease, cancer (prostate s/p prostatectomy), CHF (diastolic), COPD, diabetes type 2, hypertension, hyperlipidemia Additional medical history: obstructive sleep apnea, attempts to utilize his CPAP at night, prostate cancer - Surgical History Reports: pacemaker/AICD Additional surgical history: prostate removal, permanent pacemaker - Family History Positive for: stroke Additional family history: sister with drug overdose - Social History Smoking Status: Never smoked Additional social history: currently resides in apartment Review of Systems Review of Systems: ROS: 10pt was reviewed & negative except for what was stated in HPI & below Physical Exam Physical Exam: Temp Pulse Resp BP Pulse Ox 36.6 C 97 18 131/78 H 97 08/02/17 05:36 08/02/17 06:00 08/02/17 06:00 08/02/17 06:00 08/02/17 06:00 Constitutional: no apparent distress, appears nourished Eyes: PERRL, EOMI Ears, Nose, Mouth, Throat: moist mucous membranes, no oral mucosal ulcers Cardiovascular: no murmur, rub, or gallop, irregularly irregular, No edema Respiratory: no respiratory distress, no rales or rhonchi Gastrointestinal: normoactive bowel sounds, soft, non-tender abdomen Skin: warm, normal color Musculoskeletal: full muscle strength, no muscle tenderness Neurologic: AAOx3, CN II-XII Intact Psychiatric: interacting appropriately, not anxious Lab Data & Imaging Review 08/02/17 06:10 08/02/17 06:10 PT 29.6 SEC (12.0-15.0) H 08/02/17 05:30 INR 2.77 (0.83-1.16) H 08/02/17 05:30 APTT 32.5 SEC (23.0-38.0) 08/02/17 05:30 Sodium 140 mEq/L (134-144) 08/02/17 05:30 Potassium 3.1 mEq/L (3.5-5.2) L 08/02/17 05:30 Chloride 101 mEq/L (97-110) 08/02/17 05:30 Carbon Dioxide 24 mEq/l (22-31) 08/02/17 05:30 Anion Gap 15 mEq/L (8-16) 08/02/17 05:30 BUN 14 mg/dL (7-23) 08/02/17 05:30 Creatinine 1.0 mg/dL (0.7-1.3) 08/02/17 05:30 Estimated GFR > 60 08/02/17 05:30 Glucose 165 mg/dL (70-100) H 08/02/17 05:30 Calcium 9.5 mg/dL (8.5-10.4) 08/02/17 05:30 Total Bilirubin 1.3 mg/dL (0.1-1.4) 08/02/17 05:30 AST 18 IU/L (17-59) 08/02/17 05:30 ALT 30 IU/L (21-72) 08/02/17 05:30 Alkaline Phosphatase 100 IU/L (38-126) 08/02/17 05:30 Total Protein 7.5 g/dL (6.3-8.2) 08/02/17 05:30 Albumin 4.3 g/dL (3.5-5.0) 08/02/17 05:30 Visualized and Interpreted Chest x-ray results: Yes Chest X-Ray results: no infiltrate, other (PPM in place) EKG Interpretation: Positive for: other (Afib w/ RVR) Assessment & Plan Assessment: 62 yo M w/ SSS s/p PPM, AF on warfarin, DM, HTN, HFpEF, and COPD presents with afib w/ RVR despite compliance with his medication. Plan: 1. AF w/ RVR - HR 130s on arrival, improved after Diltiazem 15 mg IV x1 in the ED. Currently on Diltiazem XR 240 mg qD and metoprolol as outpatient (he says he takes this twice daily but does not remember dose). On warfarin for AC 2/2 [id number] of 4. INR therapeutic on admission. - Monitor on telemetry - Increase dose of diltiazem to 360 mg qD (he takes this at noon, will order as such) - Continue metoprolol, dose will need to be confirmed by pharmacy 2. HTN - On metoprolol, lisinopril, and diltiazem as outpatient 3. HFpEF - Likely 2/2 AF, EF WNL on most recent TTE. Appears compensated on exam. 4. SSS s/p PPM 5. COPD - Not on medications currently. 6. DM - Diet controlled FEN - Regular Code - Full Ppx - Warfarin, therapeutic INR Dispo - Admit to observation status, anticipate he can discharge later today if rates are controlled with increased diltiazem.
[2017-08-02 06:30] LABS: % IMMATURE GRANULYOCYTES 0.2 % (0.0-1.1); ABSOLUTE IMMATURE GRANULOCYTES 0.02 10^3/uL (0.00-0.10); ADD DIFF? NO; ADD MORPH? NO; ADD SCAN? NO; ATYPICAL LYMPHOCYTE FLAG 10 (0-99); FRAGMENT RBC FLAG 0 (0-99); HEMATOCRIT 49.8 % (40.0-51.0); HEMOGLOBIN 17.7 g/dL (13.7-17.5); LEFT SHIFT FLG 0 (0-99); LIPEMIA HEMOLYSIS FLAG 90 (0-99); MEAN CELL HEMOGLOBIN 31.3 pg (27.9-34.1); MEAN CELL HEMOGLOBIN CONCENTR. 35.5 g/dL (32.4-36.7); MEAN CELL VOLUME 88.1 fL (81.5-99.8); MEAN PLATELET VOLUME 10.7 fL (8.7-11.7); PLATELET CLUMPS FLAG 0 (0-99); PLATELET COUNT 190 10^3/uL (150-400); RED BLOOD CELL COUNT 5.65 10^6/uL (4.40-6.38); RED CELL DISTRIBUTION WIDTH 12.7 % (11.5-15.2)
[2017-08-02 06:34] LABS: MAGNESIUM 1.9 mg/dL (1.6-2.3); POTASSIUM 3.1 mEq/L (3.5-5.2)
[2017-08-02] MEDS ORDERED: POTASSIUM CL 20 MEQ/15 ML UDCUP PO ONE (07:17)
[2017-08-02] MEDS ORDERED: DILTIAZEM CD 180 MG CAP PO SCH (12:00)
[2017-08-02] MEDS ORDERED: TIOTROPIUM INHALER 18 MCG/DOSE 5 DOSE/MDI IH PRN (15:07)
[2017-08-02] MEDS ORDERED: traMADol 50 MG TAB PO PRN (15:07)
[2017-08-02] MEDS: LISINOPRIL 10 MG TAB PO SCH (15:37)
[2017-08-02] MEDS: METOPROLOL SUCCINATE XR 100 MG TAB PO SCH ×2 (15:39→23:09)
[2017-08-02] MEDS: ATORVASTATIN CALCIUM 40 MG TAB PO SCH (15:39)
--- NOTE | 2017-08-02 16:53 | HOSPPROG ---
Hospitalist Progress Note Assessment/Plan: First encounter 62 yo male admitted for AFib and SOB. Still in Afib #Afib: -PO Diltiazem increased from 240-360 -I will restart the pts home Metoprolol which he did not get all day. This should help with his rate -Cont Warfarin -Cards to see in a.m. #Chronic AC: on Coumadin. INR is therapeutic #Hypokalemia, replace #HTN #DM dispo: keep overnight, inpatient. Subjective: Doesnt feel good. still in afib. No CP or SOB. NO leg swelling Objective: Vital Signs Temp Pulse Resp BP Pulse Ox 36.6 C 98 18 148/92 H 99 08/02/17 16:34 08/02/17 16:34 08/02/17 16:34 08/02/17 16:34 08/02/17 16:34 Laboratory Results 08/02/17 06:10 08/02/17 06:10 PT 29.6 SEC (12.0-15.0) H 08/02/17 05:30 INR 2.77 (0.83-1.16) H 08/02/17 05:30 - Physical Exam Constitutional: no apparent distress Eyes: PERRL Ears, Nose, Mouth, Throat: moist mucous membranes Cardiovascular: irregularly irregular Respiratory: reduced air movement Gastrointestinal: normoactive bowel sounds Skin: warm Neurologic: AAOx3 Psychiatric: interacting appropriately, not anxious, not encephalopathic ICD10 Worksheet Patient Problems: Problems Problem Status Onset A-fib Acute SVT (supraventricular tachycardia) Acute Shortness of breath Acute
[2017-08-02 18:48] LABS: POTASSIUM 3.6 mEq/L (3.5-5.2)
[2017-08-02] MEDS: ACETAMINOPHEN 325 MG TAB PO PRN ×2 (19:18→23:10)
[2017-08-02] MEDS ORDERED: POTASSIUM CL 20 MEQ TAB PO ONE (20:12)
[2017-08-02] MEDS ORDERED: WARFARIN SODIUM 2.5 MG TAB PO SCH (21:00)
[2017-08-03 04:59] LABS: MAGNESIUM 1.9 mg/dL (1.6-2.3); POTASSIUM 3.8 mEq/L (3.5-5.2)
[2017-08-03] MEDS: ATORVASTATIN CALCIUM 40 MG TAB PO SCH (08:30)
[2017-08-03] MEDS: LISINOPRIL 10 MG TAB PO SCH (08:30)
[2017-08-03] MEDS: METOPROLOL SUCCINATE XR 100 MG TAB PO SCH (08:30)
[2017-08-03 08:31] VITALS: BP 120/82; PULSE 87
[2017-08-03 08:49] VITALS: RESP 16; TEMP 98.3; O2SAT 93
[2017-08-03] MEDS ORDERED: DULoxetine 60 MG CAP PO SCH (09:00)
--- NOTE | 2017-08-03 10:34 | PDDCSUM ---
Discharge Summary Discharge Summary: HPI/Hospital Course 62 yo male admitted for acute on chronic afib. He was given IV Diltiazem which initially helped with his rate. He was transitioned to oral Diltiazem as a higher dose than his home meds, but unfortunately he had recurrence. He was kept overnight and Metoprol was started with much improved rate. He is still in afib but he reports that he is chronically in and out of afib. He is on Warfarin and his INR is therapeutic. He had an TTE done this morning and this will need to be reviewed upon his f/u with Cardiology in 1-2 weeks. He did not have any signs of fluid overload. He is on RA and BP is at [place] DDX: #Afib: -PO Diltiazem increased from 240-360 -Metoprolol XL 100mg BID -Cont Warfarin -f/u with Cards as outpatient #Chronic AC: on Coumadin. INR is therapeutic #Hypokalemia, replaced #CHF, euvolemic #DM: diet controlled #HLD: cont statin #HTN: BB, CCB, ARTIS-I Exam: NAD AAOX3 IRR/IRR CTA B NO EDEMA S/NT/ND D/C MEDS: PER MED REC. SEE ABOVE FOR CHANGES TOTAL TIME SPENT ON D/C IS 35 MINUTES
--- NOTE | 2017-08-03 10:58 | ASMTCASEMG ---
Living Arrangements What is your living Answers: Alone arrangement? Who do you live with? Type Of Residence What kind of residence do Answers: House you live in? Discharge Plan Comments Coordination Status Comments Notes: Pt is a 62 y/o man admitted w/ palpitations. PT is ordered and awaiting recommendations. Pt lives alone w/ his service dog. Pt is requesting a walker w/ brakes with a seat. CM provided pt a walker from case management's donation closet. Pt reports that he cannot afford to buy a walker. Pt will most likely d/c independent w/out any needs. CM provided pt w/ a local bus pass, per his request. CM available for any changes. Date Signed: 08/03/2017 10:57 AM Electronically Signed By:CAITLYN Cobos
--- NOTE | 2017-08-03 11:22 | ASDISCHSUM ---
Discharge Information Plan Status:Home with No Needs Medically Cleared to Leave:08/03/2017 Discharge Date:08/03/2017 11:04 AM CM D/C Disposition: ADT D/C Disposition:Home, Routine, Self-Care Projected Discharge Date:08/03/2017 12:00 AM Transportation at D/C: Discharge Delay Reason: Follow-Up Date:08/03/2017 12:00 AM Discharge Slot: Final Diagnosis: Placement Information Patient Contact Information Contact Name:LUCÍAMIKA Relationship:Anum Address: Home Phone: Work Phone: City: Alternate Phone: State/Zip Code: Email: Financial Information Financial Class: Primary Plan Desc:MEDICARE OUTPATIENT Primary Plan Number:[id number] Secondary Plan Desc:MEDICAID HEALTH FIRST [place] OP Secondary Plan Number:[id number] Assessment Information [facility] Initial CM Assessment Living Arrangements What is your living Answers: Alone arrangement? Who do you live with? Type Of Residence What kind of residence do Answers: House you live in? Discharge Plan Comments Coordination Status Comments Notes: Pt is a 62 y/o man admitted w/ palpitations. PT is ordered and awaiting recommendations. Pt lives alone w/ his service dog. Pt is requesting a walker w/ brakes with a seat. CM provided pt a walker from case management's donation closet. Pt reports that he cannot afford to buy a walker. Pt will most likely d/c independent w/out any needs. CM provided pt w/ a local bus pass, per his request. CM available for any changes. Date Signed: 08/03/2017 10:57 AM Electronically Signed By:CAITLYN Cobos Intervention Information Intervention Type:*WILVER-Signed Date of Service:08/03/2017 09:03 AM Patient Type:Observation Staff Member:Yamilka Higgins Hours: Discipline: Severity: Comment:
--- NOTE | 2017-08-03 16:17 | ECHO ---
[email or web address] [address] Main: [phone] Fax: Transthoracic Echocardiogram Name: BRAYDON GOMEZ MR#: [id number] Study Date: 08/03/2017 Study Time: 09:48 AM Date of : 1955 Age: 62 year(s) Height: 165.1 cm (65 in.) Weight: 71.67 kg (158 lb.) BSA: 1.79 m2 Gender: Male Examination: Echo Indication: Atrial Fibrillation Image Quality: Adequate Contrast: Requested by: Joseph Daley BP: 120 mmHg/82 mmHg Heart Rate: Rhythm: Atrial fibrillation Indication: Atrial Fibrillation Procedure Staff Transfer Worker: Amelie Bean Reading Physician: Braydon Unger Requesting Provider: Conclusions: No LV hypertrophy. Normal global systolic LV function. EF is 57 %. There is a discrete area of hypokinesis in the mid inferior wall. There is a pacemaker lead noted in the right ventricle. There is a pacemaker lead noted in the right atrium. There is mild thickening of the mitral valve leaflets. Mild mitral valve regurgitation is present. Mild aortic cusp calcification is noted. Trivial to mild aortic valve regurgitation. Trivial to mild tricuspid valve regurgitation. Normal size aortic root measuring 3.0 cm. Normal size ascending aorta measuring 3.1 cm. Measurements: Chambers Valvular Assessment AV/MV Valvular Assessment TV/PV Normal Normal Normal Name Value Range Name Value Range Name Value Range Ao Wandy (MM): 3.0 cm (2.2 cm-3.7 AV Vmax: 1.26 m/s (1 m/s-1.7 TR Vmax: 2.68 mm/s ( - ) cm) m/s) TR PGmax: 29 mmHg ( - ) IVSd (2D): 0.9 cm (0.6 cm-1.1 AV maxP mmHg ( - ) syst. PAP: 34 mmHg ( - ) cm) LVOT Vmax: 0.78 m/s (0.7 m/s-1.1 PV Vmax: 0.75 m/s (0.6 m/s-0.9 LVDd (2D): 4.3 cm (4.2 cm-5.9 m/s) m/s) cm) MV E Vmax: 0.80 m/s ( - ) PV PGmax: 2 mmHg ( - ) LVDs (2D): 2.8 cm (2.1 cm-4 cm) LVPWd (2D): 0.8 cm (0.6 cm-1 cm) LVEF (BP): 57 % (>=55 %) Patient: BRAYDON GOMEZ Study Date: 08/03/2017 Page 1 of 2 09:48 AM RVDd(2D): 3.6 cm (1.9 cm-3.8 cmmm) Continued Measurements: Chambers Valvular Assessment AV/MV Valvular Assessment TV/PV Name Value Name Value Name Value LADs Lon.2 cm MV E' Septal: 0.06 m/s CVP (est.): 5 mmHg LA Area: 17.3 cm2 MV E/E' Septal: 12.40 LA Volume: 53 ml MV E/E' Lateral: 7.40 LA Volume Index: 29.6 ml/m2 TAPSE: 1.8 cm RA Area: 16.1 cm2 Additional Vessels Name Value Ao Ascendin.1 cm Findings: Left Ventricle: Normal size left ventricle. No LV hypertrophy. Normal global systolic LV function. EF is 57 %. There is a discrete area of hypokinesis in the mid inferior wall. Unable to assess diastolic dysfunction. Right Ventricle: Upper normal size right ventricle. Normal RV function. There is a pacemaker lead noted in the right ventricle. Left Atrium: The left atrium is normal in size. Right Atrium: The right atrium is normal in size. There is a pacemaker lead noted in the right atrium. Mitral Valve: There is mild thickening of the mitral valve leaflets. Mild mitral valve regurgitation is present. Aortic Valve: The aortic valve is tri-leaflet. Mild aortic cusp calcification is noted. Trivial to mild aortic valve regurgitation. No aortic valve stenosis is present. Tricuspid Valve: The tricuspid valve is normal in appearance and function. Trivial to mild tricuspid valve regurgitation. The pulmonary artery pressure is normal. Aorta: Normal size aortic root measuring 3.0 cm. Normal size ascending aorta measuring 3.1 cm. IVC: The IVC is normal sized. Pericardium: No pericardial effusion. (No Signature Object) Patient: BRAYDON GOMEZ Study Date: 08/03/2017 Page 2 of 2 09:48 AM [id number]
[2017-08-03] MEDS ORDERED: WARFARIN SODIUM 5 MG TAB PO SCH (21:00)
== END 2017-08-03 11:04 | disposition home or self-care (01) ==
LOC: EDUNIT# → F2W 10:30
PROVIDERS: ADMIT Student in an Organized Health Care Education/Training Program; ATTEND Student in an Organized Health Care Education/Training Program
PROC: 3E033RZ Introduction of Antiarrhythmic into Peripheral Vein, Percutaneous Approach (ICD-10-PCS; principal; 2017-08-02)
DX: I48.2 Chronic atrial fibrillation (principal); E87.6 Hypokalemia; I50.32 Chronic diastolic (congestive) heart failure; E11.40 Type 2 diabetes mellitus with diabetic neuropathy, unspecified; E78.5 Hyperlipidemia, unspecified; I11.0 Hypertensive heart disease with heart failure; J44.9 Chronic obstructive pulmonary disease, unspecified; Z79.01 Long term (current) use of anticoagulants; Z59.0 Homelessness; Z85.46 Personal history of malignant neoplasm of prostate; Z95.0 Presence of cardiac pacemaker
CPT/HCPCS: 71020; 93005; 93306; 96374; 99285; G0378

== ENCOUNTER 2017-10-31 14:38 | Emergency (ER) | payer OTHER, MEDICAID ==
[2017-10-31 14:51] VITALS: TEMP 98.4
--- NOTE | 2017-10-31 15:08 | EDPHY ---
H & P Time Seen by Provider: 10/31/17 15:07 HPI/ROS: CHIEF COMPLAINT: Right arm injury HISTORY OF PRESENT ILLNESS: This patine is an anticoagulated (Xarelto) 62 y/o male with history of atrial fibrillation, HTN, CHF complaining of right arm pain. His little dog pushed him out of bed earlier today and he landed on his right elbow. He took a nap following this and woke with increased swelling of his elbow. He complains of mild throbbing discomfort. He is able to move his arm without pain. He denies striking his head or any other trauma. No fever, recent illness, or further complaints. ROS: No numbness, weakness, syncopal episode, other injury. Past Medical/Surgical History: CHF Hypertension Diabetes mellitus type 2 Pacemaker Atrial fibrillation (Xarelto) Peripheral neuropathy, DOROTHY Compressed discs Prostate cancer COPD Tonsillectomy Radical prostatectomy Social History: Nonsmoker. Lives in [place]. PCP Dr. Estes. Smoking Status: Never smoked Physical Exam: Alert, pleasant Extremities: Hematoma to right elbow. Full ROM without pain of elbow including supination and pronation. Skin: Warm and dry Neuro: Motor and sensory intact Vascular: Capillary refill brisk distally Constitutional: Initial Vital Signs Temperature (C) 36.9 C 10/31/17 14:47 Heart Rate 95 10/31/17 14:47 Respiratory Rate 18 10/31/17 14:47 O2 Sat (%) 92 10/31/17 14:47 O2 Delivery Mode Room Air Allergies/Adverse Reactions: No Known Allergies Allergy (Verified 08/02/17 05:39) Home Medications: Medication Instructions Recorded Metoprolol Succinate Xr [Toprol Xl 100 mg PO BID 08/14/16 100 mg (*)] traMADol [Ultram 50 mg (*)] 50 - 100 mg PO BID PRN 11/06/16 Atorvastatin Calcium [Lipitor 40 40 mg PO DAILY 08/02/17 mg (*)] DULoxetine [Cymbalta 60 MG (*)] 60 mg PO DAILY 08/02/17 Lisinopril [Zestril 10 mg (*)] 10 mg PO DAILY 08/02/17 Tiotropium Inhaler [Spiriva 18 mcg IH DAILY PRN 08/02/17 Handihaler] Diltiazem Cd [Cardizem ER Q24hr] 360 mg PO DAILY@1200 #30 cap 10/27/17 Xarelto 10/31/17 Medical Decision Making ED Course/Re-evaluation: Anticoagulated 62 y/o male presents with right elbow pain and swelling secondary to a mechanical fall earlier today. Exam reveals right elbow hematoma , no pain with ROM including supination and pronation. Xray not indicated. Plan to d/c home in good condition with compression wrapping. He is reassured that the elbow does not need to be drained at this time. Follow up and return precautions discussed including signs of infection. Ice and acetaminophen for pain relief. He is comfortable with this plan. Departure - Departure Disposition: Home, Routine, Self-Care Clinical Impression: Traumatic hematoma of right elbow Qualifiers: Encounter type: initial encounter Qualified Code(s): S50.01XA - Contusion of right elbow, initial encounter Condition: Good Instructions: Hematoma (ED) Additional Instructions: 1. Rest, ice, elevation. I recommend applying ice for 20 minutes every two hours as needed for comfort. You may take acetaminophen 650mg every 4-6 hours as needed for pain relief. 2. Return to the emergency department for severe pain, fever, redness or warmth around the injury site, weakness or numbness in your arm, or other worsening of condition. 3. Follow up with your primary care provider in 2-3 days for further evaluation. Referrals: Idla Estes MD [Primary Care Provider] - As per Instructions Report Scribed for: Alla Reyes Report Scribed by: Layla Redding Date of Report: 10/31/17 Time of Report: 15:28 Physician Review and Approval Statement: 10/31/17 15:28 Portions of this note were transcribed by a medical practice manager. I personally performed a history, physical exam, medical decision making, and confirmed accuracy of information the transcribed note.
[2017-10-31 15:37] VITALS: BP 132/74; PULSE 85; RESP 16; O2SAT 95
== END 2017-10-31 15:38 | disposition home or self-care (01) ==
DX: S50.01XA Contusion of right elbow, initial encounter (principal); I11.0 Hypertensive heart disease with heart failure; I50.9 Heart failure, unspecified; E11.9 Type 2 diabetes mellitus without complications; J44.9 Chronic obstructive pulmonary disease, unspecified; Z85.46 Personal history of malignant neoplasm of prostate; Z95.0 Presence of cardiac pacemaker; Z79.01 Long term (current) use of anticoagulants; W54.8XXA Other contact with dog, initial encounter

== ENCOUNTER 2018-12-03 07:03 | Day surgery (SDC) | payer OTHER, MEDICAID ==
[2018-12-03] MEDS ORDERED: diphenhydrAMINE 25 MG CAP PO ONE (07:15)
[2018-12-03] MEDS ORDERED: NS 1,000 ML IV ONE (07:15)
[2018-12-03] MEDS ORDERED: DIAZEPAM 5 MG TAB PO ONE (07:15)
[2018-12-03] MEDS ORDERED: ceFAZolin 2 GM/DEXTROSE 100 ML IV ONE (07:15)
[2018-12-03] MEDS ORDERED: BACITRACIN IRRIGATION/NS 50,000 UNITS/1,000 ML BTL IRR ONE (07:15)
[2018-12-03 08:04] LABS: PLATELET COUNT 171 10^3/uL (150-400)
[2018-12-03 08:17] LABS: INR 1.11 (0.83-1.16); PROTIME(PATIENT) 14.5 SEC (12.0-15.0)
[2018-12-03] MEDS ORDERED: LIDO/EPI 1% **for epidural** 30 ML SDV ONE (08:53)
[2018-12-03] MEDS ORDERED: fentaNYL 100 MCG/2 ML INJ ONE (08:53)
[2018-12-03] MEDS ORDERED: BUPIVACAINE 0.5% 30 ML SDV ONE (08:53)
[2018-12-03] MEDS ORDERED: MIDAZOLAM 2 MG/2 ML VIAL ONE (08:53)
[2018-12-03] MEDS ORDERED: LIDOCAINE 1% 300 MG/30 ML SDV ONE (08:53)
--- NOTE | 2018-12-03 09:02 | PDPROPOC ---
Sedation Plan of Care Sedation Plan of Care: vital signs stable, mental status noted, patient educated of risks, benefits, alternatives, patient can tolerate sedation ASA Classification: ASA 1 Planned drugs: fentanyl, midazolam Mallampati Score: Class 1 Mallampati Reference Image: Patient passed 3-3-2 rule?: Yes
--- NOTE | 2018-12-03 09:05 | PDGENHP ---
History & Physical Chief Complaint: Pacer at end of life History of Present Illness: 63 yo with afib and sick sinus syndrome. Deveice at EOL. Pertinent Past, Social, Family History: Hx. Prostate CA stage 4 in remission. Relevant Physical Exam: 61. 120/75. RR:18. No JVP. Chest clear. Cor regular. Pacer left anterior chest. tatoo below incison. extm: No edema Cardiorespiratory Assessment: Pacer at EOL. No contraindications to proceeding.
--- NOTE | 2018-12-03 09:58 | PDCTREPORT ---
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 Left subclavian fossa was sterilely prepped and draped. The old scar was anesthetized with 2% xylocaine. Using a 10 blade an incision was made through the old scar. Using the Bovie catheter and blunt dissection the pacemaker pocket was entered. The old device delivered to the field. Device was removed after loosening the set screws. The pocket was copiously irrigated. Both atrial and ventricular leads were tested for appropriate sensitivities and thresholds. New device was delivered to the field. Leads were attached after checking serial numbers. Setscrews were tightened per industry standards. The system was coiled into the pocket. Three-layer closure was used. Pressure dressings applied the patient is taken to recovery for continued care Conclusion successful pacemaker generator change. For details of the device/ serial numbers please see the attached computer report. [id number] Serial Number [id number] [employer] Right Atrial LEad Model [id number] Serial Number [id number] Right Ventricle Model Number [id number] Serial Number [id number] Patient Problems: Problems Problem Status Onset A-fib Acute SVT (supraventricular tachycardia) Acute Shortness of breath Acute Traumatic hematoma of right elbow Acute
== END 2018-12-03 12:38 | disposition home or self-care (01) ==
LOC: FCATH 07:03
PROVIDERS: ATTEND Internal Medicine Interventional Cardiology
DX: Z45.010 Encounter for checking and testing of cardiac pacemaker pulse generator [battery] (principal); I48.91 Unspecified atrial fibrillation; I49.5 Sick sinus syndrome
CPT/HCPCS: C1785; J0690; J2250; J3010